=== PATIENT | male | born 1960 | race Asian ===

== ENCOUNTER 2018-05-10 13:54 | Emergency (ER) | payer OTHER ==
[2018-05-10 14:57] LABS: URINE BLOOD (Dip) POC Negative (NEGATIVE); URINE GLUCOSE (Dip) POC Negative (NEGATIVE); URINE KETONES (Dip) POC Negative (NEGATIVE); URINE LEUKOCYTE EST (Dip) POC Negative (NEGATIVE); URINE NITRITE (Dip) POC Negative (NEGATIVE); URINE TOTAL PROTEIN POC Negative (NEGATIVE)
[2018-05-10 14:57] LABS: URINE PH (Dip) POC 6.5 (5.0-8.5)
== END 2018-05-10 16:13 | disposition home or self-care (01) ==
LOC: FTE 13:54
DX: R10.32 Left lower quadrant pain (principal); I10 Essential (primary) hypertension; J45.909 Unspecified asthma, uncomplicated; Z79.82 Long term (current) use of aspirin; Z79.84 Long term (current) use of oral hypoglycemic drugs
CPT/HCPCS: 76536; 81003; 99284-25

== ENCOUNTER 2018-08-10 08:20 | Day surgery (SDC) | payer OTHER ==
[~2018-08-10 08:20] MED LIST: PHENYLephrine (100 MCG/ML) 5ML SYG; ROPIVACAINE 0.5 % 30 ML VIAL
[2018-08-10] MEDS ORDERED: CEFAZOLIN 2 GM/50 ML (PMX) 50 ML IVPB (08:30)
[2018-08-10] MEDS ORDERED: SOD CHLORIDE 0.9% 1,000 ML IV (08:30)
[2018-08-10] MEDS ORDERED: FENTAnyl 50 MCG/ML VIAL IV ×2 (11:00)
[2018-08-10] MEDS ORDERED: ONDANSETRON 4 MG INJ IV (11:00)
[2018-08-10] MEDS ORDERED: DIPHENHYDRAMINE 50 MG INJ IV (11:00)
[2018-08-10] MEDS ORDERED: MEPERIDINE 25 MG INJ IV (11:00)
[2018-08-10] MEDS ORDERED: IPRATROPIUM (NEB) 0.5 MG/2.5 ML AMP HHN (11:00)
[2018-08-10] MEDS ORDERED: HYDROmorphONE 1 MG/5 ML IV SYRINGE IV ×3 (11:00)
[2018-08-10] MEDS ORDERED: hydrALAzine 20 MG INJ IV (11:00)
[2018-08-10] MEDS ORDERED: KETOROLAC 30 MG INJ IV (11:00)
[2018-08-10] MEDS ORDERED: LABETALOL HCL 20MG INJ IV (11:00)
[2018-08-10] MEDS ORDERED: LEVALBUTEROL (NEB) 1.25 MG/0.5 ML AMP HHN (11:00)
[2018-08-10] MEDS ORDERED: PHENYLephrine (100 MCG/ML) 5ML SYG (11:43)
[2018-08-10] MEDS ORDERED: FENTAnyl 50 MCG/ML VIAL (11:46)
[2018-08-10] MEDS ORDERED: MIDAZOLAM 1 MG/ML 2 ML INJ (11:46)
[2018-08-10] MEDS ORDERED: PROPOFOL 20 ML (11:47)
[2018-08-10] MEDS ORDERED: LIDOCAINE 2% (SDV) 5 ML INJ (11:47)
[2018-08-10] MEDS ORDERED: METOCLOPRAMIDE 10 MG INJ (11:48)
[2018-08-10] MEDS ORDERED: CEFAZOLIN 1 GM INJ ×2 (11:51→12:27)
[2018-08-10] MEDS: BUPIVACAINE 0.25% (MPF) 30 ML INJ (11:52)
[2018-08-10] MEDS: POLYMYXIN/BACITRACIN 1L IRRIG IRR (11:55)
[2018-08-10] MEDS: HYDROCODONE/APAP (5/325) TAB PO (13:40)
== END 2018-08-10 14:20 | disposition home or self-care (01) ==
LOC: SDS 08:20
DX: K40.30 Unilateral inguinal hernia, with obstruction, without gangrene, not specified as recurrent (principal); I10 Essential (primary) hypertension; E11.9 Type 2 diabetes mellitus without complications; J45.909 Unspecified asthma, uncomplicated
CPT/HCPCS: 49507; 82962

== ENCOUNTER 2018-10-16 11:30 | Emergency (ER) | payer OTHER ==
[2018-10-16 13:03] LABS: ADD MAN DIFF? NO
[2018-10-16 13:10] LABS: BASOPHIL # 0.1 10^3/ul (0.0-0.1); BASOPHILS % 0.8 % (0.0-2.0); EOSINOPHILS # 0.3 10^3/ul (0.0-0.5); EOSINOPHILS % 4.1 % (0.0-7.0); HEMATOCRIT 47.2 % (42.0-52.0); HEMOGLOBIN 15.2 g/dl (14.0-18.0); LYMPHOCYTES # 2.1 10^3/ul (0.8-2.9); LYMPHOCYTES % 33.5 % (15.0-51.0); MEAN CORPUSCULAR HEMOGLOBIN 28.3 pg (29.0-33.0); MEAN CORPUSCULAR HGB CONC 32.2 g/dl (32.0-37.0); MEAN CORPUSCULAR VOLUME 87.7 fl (82.0-101.0); MONOCYTE # 0.7 10^3/ul (0.3-0.9); MONOCYTES % 10.5 % (0.0-11.0); NEUTROPHIL # 3.2 10^3/ul (1.6-7.5); NEUTROPHILS % 50.9 % (39.0-77.0); PLATELET COUNT 155 10^3/UL (140-415); RED BLOOD COUNT 5.38 10^6/ul (4.70-6.10); RED CELL DISTRIBUTION WIDTH 12.5 % (11.5-14.5)
[2018-10-16 13:10] LABS: WHITE BLOOD COUNT 6.3 10^3/ul (4.8-10.8)
[2018-10-16 13:29] LABS: ALANINE AMINOTRANSFERASE 33 IU/L (13-69); ALBUMIN 4.7 g/dl (3.3-4.9); ALBUMIN/GLOBULIN RATIO 1.38; ALKALINE PHOSPHATASE 97 IU/L (42-121); ANION GAP 8 (5-13); ASPARTATE AMINO TRANSFERASE 33 IU/L (15-46); BILIRUBIN,INDIRECT 0.1 mg/dl (0-1.1); BILIRUBIN,TOTAL 0.1 mg/dl (0.2-1.3); BLOOD UREA NITROGEN 15 mg/dl (7-20); CALCIUM 10.2 mg/dl (8.4-10.2); CARBON DIOXIDE 32 mmol/L (21-31); CHLORIDE 101 mmol/L (97-110); CREATININE 0.99 mg/dl (0.61-1.24); Estimated GFR > 60 mL/min (>60); GLUCOSE 127 mg/dl (70-220); POTASSIUM 4.5 mmol/L (3.5-5.1); SODIUM 141 mmol/L (135-144); TOTAL PROTEIN 8.1 g/dl (6.1-8.1)
== END 2018-10-16 14:23 | disposition home or self-care (01) ==
LOC: FTE 11:30
DX: R03.1 Nonspecific low blood-pressure reading (principal); I10 Essential (primary) hypertension; J45.909 Unspecified asthma, uncomplicated; Z79.82 Long term (current) use of aspirin; Z79.84 Long term (current) use of oral hypoglycemic drugs
CPT/HCPCS: 36415; 80053; 85025; 99283